=== PATIENT | female | born 1975 | race African-American/Black ===

== ENCOUNTER 2017-11-07 10:24 | Emergency (ER) | payer SELFPAY ==
[~2017-11-07] VITALS: Ht 180.3 cm; Wt 86.4 kg
[2017-11-07 10:41] VITALS: BP 133/93
== END 2017-11-07 10:50 | disposition left against medical advice (07) ==
LOC: EMS 10:26
DX: I48.91 Unspecified atrial fibrillation (principal)
CPT/HCPCS: 93005; 99283